=== PATIENT | male | born 1970 | race African-American/Black ===

== ENCOUNTER 2022-10-27 16:12 | Outpatient (CLI) | payer OTHER, SELFPAY ==
--- NOTE | ~2022-10-27 | MR_ITS ---
EXAMINATION: MR shoulder LT wo con DATE: 10/27/2022 17:43 INDICATION: LEFT SHOULDER PAIN . TECHNIQUE: Magnetic resonance imaging (MRI) of the left shoulder was performed without intravenous co ntrast. Sequences included axial PD-weighted FS FSE, coronal oblique PD-weighted FS FSE and T2-weight ed FS FSE, and sagittal oblique T2-weighted FS FSE and T1-weighted FSE. COMPARISON: None. FINDINGS: Coracoacromial arch: Subacromial space measures 4 mm. Mild acromial tip enthesopathy. Moderate inferior osteophytosis off the AC joint that indents the superior cuff. No subacromial narrowing. Mild anterior downsloping of t he type II acromion. Rotator cuff: Mild tendinopathy of the supraspinatus tendon at its insertion. Intrasubstance type tear of the infra spinatus at the musculotendinous junction. Extensive abnormal signal and edema and the majority of th e infraspinatus muscle belly with a portion of proximal and inferior muscle fibers that are torn and retracted. Teres minor and subscapularis are intact. Biceps tendon and glenoid labrum: The long and short heads of the biceps tendon are intact. Tear of the superior labrum from anteriorly to posteriorly. Fluid: Minimal subacromial subdeltoid bursal fluid with superior cuff fraying. Bones/cartilage: Moderate AC joint hypertrophy. Mild thinning of glenohumeral cartilage. IMPRESSION: Intrasubstance type tear of the infraspinous, with a severe infraspinatus muscle strain, including a tearing and retraction of proximal and inferior muscle fibers. Tear of the superior labrum. Mild subacromial subdeltoid bursitis with osseous outlet compromise. Moderate AC joint osteoarthritis. Reviewed, dictated and finalized at location K. IMPRESSION: Intrasubstance type tear of the infraspinous, with a severe infraspinatus muscl e strain, including a tearing and retraction of proximal and inferior muscle fi bers. Tear of the superior labrum. Mild subacromial subdeltoid bursitis with osseous outlet compromise. Moderate AC joint osteoarthritis.
== END 2022-10-27 16:13 | disposition home or self-care (01) ==
LOC: ANHIMG 16:16
PROVIDERS: PCP Family Medicine; Visit Provider Physician Assistant
DX: M25.512 Pain in left shoulder (principal); S43.432A Superior glenoid labrum lesion of left shoulder, initial encounter; M75.52 Bursitis of left shoulder; M19.012 Primary osteoarthritis, left shoulder
CPT/HCPCS: 73221